=== PATIENT | female | born 2005 | race Caucasian/White ===

== ENCOUNTER 2023-04-23 16:38 | Emergency (ER) | payer SELFPAY ==
[2023-04-23 16:49] VITALS: BP 140/85; PULSE 111; RESP 16; TEMP 37.2; O2SAT 93
== END 2023-04-23 17:35 | disposition left against medical advice (07) ==
PROVIDERS: Emergency Provider Emergency Medicine Emergency Medical Services; PCP Family Medicine
DX: Z53.21 Procedure and treatment not carried out due to patient leaving prior to being seen by health care provider (principal)